=== PATIENT | female | born 1980 | race Caucasian/White ===

== ENCOUNTER 2022-04-08 14:06 | Outpatient (CLI) | payer OTHER ==
[2022-04-08 15:16] LABS: Hemoglobin 14.1 g/dL (12.0-15.5); Mean Corpuscular HGB CONC 32.7 g/dL (32.0-36.0); Mean Corpuscular Hemoglobin 29.3 pg (27.0-33.0); Mean Corpuscular Volume 89.6 fl (81.6-98.3); Mean Platelet Volume 10.7 fl (7.4-10.4); Platelet Count 360 10x3/uL (150-450); RBC Distribution Width 12.8 % (11.5-14.5); Red Blood Cell (RBC) Count 4.81 10x6/uL (3.90-5.03); White Blood Cell (WBC) Count 10.6 10x3/uL (3.5-10.5)
[2022-04-08 15:35] LABS: BHCG - Serum Negative (NEGATIVE); Pregs Control Background? CLEAR/WHITE (CLR/WHITE); Pregs Control Bar Appear? YES (CONTROL BAR)
[2022-04-08 15:46] LABS: Anion Gap 15 mmol/L (10-20); BUN (Urea Nitrogen) 13 mg/dL (7.0-18.7); Calc. Creatinine Clearance 0 mL/min (70-130); Calcium 9.7 mg/dL (7.8-10.44); Carbon Dioxide 28 mmol/L (22-29); Chloride 103 mmol/L (98-107); Glucose 107 mg/dL (70-105); Sodium 142 mmol/L (136-145)
[2022-04-09 16:33] LABS: SARS-CoV-2 PCR by NAA Not Detected (NotDetected)
== END 2022-04-08 14:07 | disposition home or self-care (01) ==
LOC: CSHLAB 14:06
PROVIDERS: ATTEND Obstetrics & Gynecology
DX: Z01.812 Encounter for preprocedural laboratory examination (principal); Z20.822 Contact with and (suspected) exposure to COVID-19; N88.8 Other specified noninflammatory disorders of cervix uteri
CPT/HCPCS: 80048; 84703; 85027; U0003; U0005

== ENCOUNTER → 2022-04-13 | Day surgery (SDC) | payer OTHER ==
[2022-04-11 16:19] VITALS: BMI 29.9
[~2022-04-13] MED LIST: Dexamethasone 20 MG/5 ML VIAL ONE; Famotidine/PF 20 mg/2ml Vial ONE; Fentanyl 250 MCG/5 ML VIAL ONE; Ketorolac Tromethamine 30 MG/ML VIAL ONE; Lidocaine 1% MPF 2 ML VIAL ONE; Midazolam HCl 2 mg/2 ml Vial ONE; Ondansetron PF 4 MG/2 ML Vial ONE; PROPOFOL 20 ML ONE; Scopolamine 1.5 mg/72 hour Patch ONE; ceFAZolin 2 GM/Dextrose 50 ML IVPB ONE
== END | disposition home or self-care (01) ==
LOC: CSHSDC 05:43
PROVIDERS: ATTEND Obstetrics & Gynecology
PROC: 0UBC8ZX Excision of Cervix, Via Natural or Artificial Opening Endoscopic, Diagnostic (ICD-10-PCS; principal; 2022-04-13)
PROC: 0UDB7ZZ Extraction of Endometrium, Via Natural or Artificial Opening (ICD-10-PCS; principal; 2022-04-13)
DX: N84.1 Polyp of cervix uteri (principal); G25.0 Essential tremor; G43.809 Other migraine, not intractable, without status migrainosus; Z79.899 Other long term (current) drug therapy; Z88.6 Allergy status to analgesic agent
CPT/HCPCS: 88305; J0690; J1100; J1885; J2250; J2405; J2704; J3010; S0028